=== PATIENT | male | born 2000 | race Caucasian/White ===

== ENCOUNTER → 2019-09-11 | Outpatient (CLI) | payer BC | LOC: COL.PUL 08:00 | DX: Z87.898 Personal history of other specified conditions (principal) ==

== ENCOUNTER → 2019-12-04 | Outpatient (CLI) | payer BC | LOC: COL.PUL 11-06 10:00 | DX: Z87.898 Personal history of other specified conditions (principal) | CPT/HCPCS: J7674 ==